=== PATIENT | female | born 1965 | race Caucasian/White ===

== ENCOUNTER 2017-08-24 19:23 | Emergency (ER) | payer OTHER ==
[~2017-08-24] VITALS: Ht 162.6 cm; Wt 72.6 kg
[~2017-08-24 19:23] MED LIST: AMLODIPINE10 MG PO; ASPIRIN81 MG PO; ATORVASTATIN CA80 MG PO; CLOPIDOGREL75 MG PO; LOPRESSOR 25MG25 MG PO; LYRICA75 M1 PO; NITROSTAT0.4 MG SL; PERCOCET 5-3251 EACH PO; RANEXA 500MG500 MG PO; TORADOL10 MG PO; TRICOR 48MG48 MG PO; VALTREX1000 MG PO
--- NOTE | 2017-08-24 20:00 | ED GI/GU/ABDOMINAL COMPLAINT ---
History of Present Illness General Chief Complaint: Abdominal Pain/Flank Pain Stated Complaint: SHINGLES, ABD PAIN Source: patient Exam Limitations: no limitations Vital Signs & Intake/Output Vital Signs & Intake/Output Vital Signs Date Time Temp Pulse Resp B/P B/P Pulse O2 O2 Flow FiO2 Mean Ox Delivery Rate 08/25 0038 98.4 72 20 135/81 93 Room Air 08/24 2238 97.3 82 18 114/63 94 Room Air 08/24 1933 98.4 70 20 145/84 98 Room Air ED Intake and Output 08/25 0000 08/24 1200 Intake Total Output Total Balance Patient 160 lb Weight Weight Reported by Patient Measurement Method Allergies Coded Allergies: Penicillins (Severe, SWELLING 08/24/17) erythromycin base (Severe, TONGUE SWELLING 08/24/17) azithromycin (Intermediate, SWELLING 08/24/17) naproxen (From NAPROSYN) (Intermediate, HIVES, FEELS FAINT 08/24/17) Reconcile Medications Amlodipine Besylate (Amlodipine) 10 MG TAB 1 TAB PO DAILY BP (Reported) Aspirin 81 MG ECT 1 TAB PO DAILY HEART/BLOOD (Reported) Atorvastatin Calcium (Lipitor) 80 MG TAB 1 TAB PO DAILY CHOLESTEROL (Reported ) CLOPIDOGREL BISULFATE (Clopidogrel) 75 MG TAB 1 TAB PO DAILY BLOOD THINNER ( Reported) Fenofibrate (Tricor 48MG) 48 MG TAB 1 TAB PO DAILY TRIGLYCERIDES (Reported) Ketorolac Tromethamine (Toradol) 10 MG TAB 1 TAB PO Q4-6 PRN PAIN Metoprolol Tartrate (Lopressor) 25 MG TAB 1 TAB PO BID HEART/BP (Reported) Nitroglycerin (Nitrostat) 0.4 MG TAB 1 TAB SL AD PRN ANGINA (Reported) Oxycodone HCl/Acetaminophen (Percocet 5-325 MG Tablet) 5 MG-325 MG TABLET 1-2 TAB PO BID pain Oxycodone HCl/Acetaminophen (Percocet 5-325 MG Tablet) 1 EACH TABLET 1-2 TAB PO Q6P PRN PAIN Oxycodone HCl/Acetaminophen (Percocet 5-325 MG Tablet) 5 MG-325 MG TABLET 1-2 TAB PO Q6P PRN PAIN Pregabalin (Lyrica) 75 MG CAPSULE 1 CAP PO BID shingles Pregabalin (Lyrica) 75 MG CAPSULE 1 CAP PO BID POST HERPETIC NEURALGIA Ranolazine (Ranexa 500MG) 500 MG TAB 1 TAB PO BID ANGINA (Reported) Valacyclovir HCl (Valtrex) 1,000 MG TABLET 1 TAB PO TID SHINGLES Triage Note: TRIAGE: PT TO ER C/C PAIN TO NECK, ABD AND LEGS S/P DIAGNOSED WITH SHINGLES 07/30. HAS HAD PERCOCET AND ASPIRIN FOR PAIN. PERCOCET WAS HELPING BUT RAN OUT OF SAME MAYBE A WEEEK. +NAUSEA, VOMITED A COUPLE TIMES YESTERDAY. ATTEMPTING TO DRINK WATER AT TRIAGE, ADVISED TO REMAIN NPO UNTIL EVALUATED. Triage Nurses Notes Reviewed? yes ? n Is pt currently ? No Onset: Abrupt Duration: day(s):, constant Timing: recent history Location: right upper quadrant Radiation: back Activities at Onset: none No Modifying Factors: none HPI: 51-year-old female comes into the emergency room with abdominal pain. She has a history of coronary disease with 8 stents in her heart. She smokes previously 5 packs of cigarettes per day. She was diagnosed with shingles this past week. She reports that now she is having some associated nausea and vomiting and abdominal pain. The abdominal pain is somewhat located over the area with the rashes but also a little bit lower. Denies any changes in bowel movement. Nothing seems to make the symptoms better or worse. She comes in for further evaluation. (Binu Mckeon) Past History Travel History Traveled to [place] past 21 day No Medical History Any Pertinent Medical History? 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 No (Binu Mckeon) Review of Systems Review of Systems Constitutional: Reports: no symptoms. EENTM: Reports: no symptoms. Respiratory: Reports: no symptoms. Cardiovascular: Reports: no symptoms. GI: Reports: see HPI. Genitourinary: Reports: no symptoms. Musculoskeletal: Reports: see HPI. Skin: Reports: see HPI. Neurological/Psychological: Reports: no symptoms. Hematologic/Endocrine: Reports: no symptoms. Immunologic/Allergic: Reports: no symptoms. All Other Systems: Reviewed and Negative (Binu Mckeon) Physical Exam Physical Exam General Appearance: well developed/nourished, alert, awake Head: atraumatic Eyes: Bilateral: normal appearance, EOMI. Ears, Nose, Throat, Mouth: hearing grossly normal, moist mucous membrane Neck: normal inspection Respiratory: normal breath sounds, no respiratory distress Cardiovascular: regular rate/rhythm Gastrointestinal: soft Back: normal inspection Extremities: normal range of motion Neurologic/Psych: awake, alert, oriented x 3 Skin: intact, normal color, crusted papular rash right side of chest wrapping around to her abdomen and back Core Measures ACS in differential dx? Yes Sepsis Present: No Sepsis Focused Exam Completed? No (Binu Mckeon) Progress Differential Diagnosis: biliary colic, diverticulitis, gastritis, hepatitis, ischemic bowel, kidney stone, pancreatitis, PID/cervicitis, peptic ulcer, PUD/ GERD, perforated viscous, SBO, UTI/pyelo Plan of Care: Orders Procedure Date/time Status TROPONIN LEVEL 08/244 Complete EKG 08/24 2333 Active URINALYSIS 08/25 2003 Complete TROPONIN LEVEL 08/25 2003 Complete LIPASE 08/25 2003 Complete LACTIC ACID 08/25 2003 Complete COMPREHENSIVE METABOLIC PANEL 08/25 2003 Complete CBC WITHOUT DIFFERENTIAL 08/25 2003 Complete AMYLASE 08/25 2003 Complete EKG 08/25 2003 Active Laboratory Tests 08/24/17 2355: Troponin I < 0.01 08/24/17 2304: Lactic Acid Cancelled 08/24/17 2015: Urine Color YEL, Urine Clarity CLEAR, Urine pH 6.0, Ur Specific Viola >= 1.030 , Urine Protein NEG, Urine Ketones NEG, Urine Nitrite NEG, Urine Bilirubin NEG, Urine Urobilinogen 0.2, Ur Leukocyte Esterase NEG, Ur Microscopic EXAM NOT REQUIRED, Urine Hemoglobin NEG, Urine Glucose NEG 08/24/17 2010: Anion Gap 12, Estimated GFR > 60, BUN/Creatinine Ratio 18.8, Glucose 128 H, Lactic Acid 1.4, Calcium 9.4, Total Bilirubin 0.4, AST 23, ALT 27, Alkaline Phosphatase 110, Troponin I < 0.01, Total Protein 6.9, Albumin 3.9, Globulin 3.0 , Albumin/Globulin Ratio 1.3, Amylase 49, Lipase 101, CBC w Diff NO MAN DIFF REQ , RBC 4.36, MCV 90.1, MCH 30.7, MCHC 34.1, RDW 13.9, MPV 8.7, Gran % 63.5, Lymphocytes % 26.3, Monocytes % 7.2, Eosinophils % 2.6, Basophils % 0.4, Absolute Granulocytes 6.1, Absolute Lymphocytes 2.5, Absolute Monocytes 0.7 H, Absolute Eosinophils 0.2, Absolute Basophils 0 Diagnostic Imaging: Viewed by Me: CT Scan. Discussed w/RAD: CT Scan. 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 COMPARISON: 2009 TECHNIQUE: Multidetector volumetric imaging was performed of the abdomen and pelvis following IV administration of 94 mL of Omnipaque 300 intravenous contrast. Sagittal and coronal reformatted images were obtained on the technologist's workstation. FINDINGS: LUNG BASES: Bibasilar atelectasis. Coronary artery calcification. Normal heart size. No pericardial effusion. No pleural effusion. LIVER, GALLBLADDER, AND BILIARY TREE: No focal liver lesion. No intrahepatic biliary duct dilatation. Status post cholecystectomy. PANCREAS: Pancreas appears unremarkable. No acute inflammatory changes. SPLEEN: Unremarkable. ADRENAL GLANDS: Unremarkable. KIDNEYS AND URETERS: The kidneys are normal in size, shape, and attenuation. No hydronephrosis, hydroureter, or calculi seen. No perinephric stranding. A portion of the distal right ureter is difficult to follow, but no calculi in the expected course of the ureter. BLADDER: Unremarkable. GASTROINTESTINAL TRACT: There is diverticulosis of the sigmoid and left colon. No pericolonic inflammatory changes to suggest diverticulitis. No colonic wall thickening is seen. Normal caliber of the small bowel loops which are nondistended. There are contents within the lumen of the stomach. There is a rounded focus containing air and fluid in the region of the distal duodenum. This was seen on the prior study of 02/28/2009, 02/27/2009 as well. This may reflect a duodenal diverticulum. ABDOMINAL WALL: No significant hernia is appreciated. LYMPH NODES: No pathologically enlarged lymph nodes are seen. VASCULAR: No evidence of aneurysmal dilatation of the aorta. Moderate atherosclerotic calcification. PELVIC VISCERA: Within normal limits. No free fluid. OSSEOUS STRUCTURES: Multilevel degenerative changes in the spine. No suspicious osseous lesions are seen. IMPRESSION: 1. Colonic diverticulosis. No evidence of diverticulitis. 2. No acute process identified in the abdomen or pelvis. Etiology of the patient's symptoms has not been determined. DICTATED BY: Morris Murcia MD DATE/TIME DICTATED:08/24/172151 PICKLE SOLUTION MAKER:ASHLEY DATE/TIME TRANSCRIBED:08/24/172151 CONFIDENTIAL, DO NOT COPY WITHOUT APPROPRIATE AUTHORIZATION. <Electronically signed in Other Vendor System> SIGNED BY: Morris Murcia MD 08/24/172235 Initial ED EKG: normal sinus rhythm, rate (61), nonspecific ST T wave chg Repeat EKG: unchanged Hand-Off Endorsed To: Richard Mclain MD Endorsed Time: 32 Pending: labs (repeat troponin) (Binu Mckeon) Departure Departure Disposition: HOME OR SELF CARE Condition: Stable Clinical Impression Primary Impression: Abdominal pain Secondary Impressions: Post herpetic neuralgia Referrals: Patient Has No Primary Care Dr (PCP/Family) Additional Instructions: Take Percocet and Lyrica as prescribed. Follow-up with primary care doctor. Return if any concerns worsening symptoms Please go over all results of today's visit with your primary care doctor. Contact your primary care doctor to let them know you were here in the emergency room. There may be nonspecific findings which may not be related to your visit today here in the emergency room but may require further evaluation and chronic monitoring by your primary care doctor. If you had a laceration today the chance of foreign body always remains. You should follow-up with your primary care doctor for recheck in 3-5 days for a wound check. If you had an x-ray done there is a chance that a fracture could have been missed on initial read and you should follow-up with your primary care doctor for repeat x-rays if symptoms persist. If your blood pressure was elevated here in the emergency room please have rechecked by hyour primary care doctor within the next 48. If you were prescribed a narcotic here in the emergency room or any type of controlled substances you're not allowed to drive while taking this medication or operate any type of heavy machinery. Narcotics can make you feel lightheaded dizziness nausea and can cause constipation. You may need to citrus picker a stool softener. Thank you for choosing [facility] emergency room. Please return to the emergency room immediately if you have any other concerns worsening of symptoms. Departure Forms: Customer Survey General Discharge Information Prescriptions: Current Visit Scripts Oxycodone HCl/Acetaminophen (Percocet 5-325 MG Tablet) 1-2 TAB PO BID #10 TAB Pregabalin (Lyrica) 1 CAP PO BID #60 CAP (Binu Mckeon) PA/GELATIN MAKER [employer] Co-Sign Statement Statement: ED Attending supervision documentation- [x] I saw and evaluated the patient. I have also reviewed all the pertinent lab results and diagnostic results. I agree with the findings and the plan of care as documented in the PA's/GELATIN MAKER [employer]'s documentation. 08/25/17, 0:52am... pt with reproducible paracervical muscle spasm and tenderness to palpation. 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 trop negx2, dimer neg, ekg benign x 2... pt safe for discharge... close follow up advised. [] I have reviewed the ED Record and agree with the PA's/GELATIN MAKER [employer]'s documentation. [] Additions or exceptions (if any) to the PAs/GELATIN MAKER [employer]'s note and plan are summarized below: [] (Rayne VÁSQUEZ,Richard Alfaro)
[2017-08-24 20:23] LABS: ABSOLUTE BASOPHIL COUNT 0 /CUMM (0.0-0.2); ABSOLUTE EOSINOPHIL COUNT 0.2 /CUMM (0.0-0.7); ABSOLUTE GRANULOCYTE CT 6.1 /CUMM (1.4-6.5); ABSOLUTE LYMPH COUNT 2.5 /CUMM (1.2-3.4); ABSOLUTE MONOCYTE COUNT 0.7 /CUMM (0.10-0.60); BASOPHIL % 0.4 % (0.0-2.0); EOSINOPHIL % 2.6 % (0-5); GRANULOCYTE % 63.5 % (42.2-75.2); HEMATOCRIT 39.3 % (37-47); MEAN CORPUSCULAR HGB 30.7 PG (27.0-31.0); MEAN CORPUSCULAR HGB CONC 34.1 G/DL (33.0-37.0); MEAN CORPUSCULAR VOLUME 90.1 FL (81.0-99.0); MEAN PLATELET VOLUME 8.7 FL (7.4-10.4); PLATELET COUNT 318 /CUMM (130-400); RBC DISTRIBUTION WIDTH 13.9 % (11.5-14.5); RED BLOOD CELL CT 4.36 /CUMM (4.20-5.40); WHITE BLOOD CELL COUNT 9.6 /CUMM (4.8-10.8)
--- NOTE | 2017-08-24 22:36 | CT SCAN REPORT ---
EXAMINATION: CT ABDOMEN AND PELVIS WITH CONTRAST CLINICAL INFORMATION: Right-sided abdominal pain. COMPARISON: 02/28/2009 TECHNIQUE: Multidetector volumetric imaging was performed of the abdomen and pelvis following IV administration of 94 mL of Omnipaque 300 intravenous contrast. Sagittal and coronal reformatted images were obtained on the technologist's workstation. FINDINGS: LUNG BASES: Bibasilar atelectasis. Coronary artery calcification. Normal heart size. No pericardial effusion. No pleural effusion. LIVER, GALLBLADDER, AND BILIARY TREE: No focal liver lesion. No intrahepatic biliary duct dilatation. Status post cholecystectomy. PANCREAS: Pancreas appears unremarkable. No acute inflammatory changes. SPLEEN: Unremarkable. ADRENAL GLANDS: Unremarkable. KIDNEYS AND URETERS: The kidneys are normal in size, shape, and attenuation. No hydronephrosis, hydroureter, or calculi seen. No perinephric stranding. A portion of the distal right ureter is difficult to follow, but no calculi in the expected course of the ureter. BLADDER: Unremarkable. GASTROINTESTINAL TRACT: There is diverticulosis of the sigmoid and left colon. No pericolonic inflammatory changes to suggest diverticulitis. No colonic wall thickening is seen. Normal caliber of the small bowel loops which are nondistended. There are contents within the lumen of the stomach. There is a rounded focus containing air and fluid in the region of the distal duodenum. This was seen on the prior study of 02/28/2009, 02/27/2009 as well. This may reflect a duodenal diverticulum. ABDOMINAL WALL: No significant hernia is appreciated. LYMPH NODES: No pathologically enlarged lymph nodes are seen. VASCULAR: No evidence of aneurysmal dilatation of the aorta. Moderate atherosclerotic calcification. PELVIC VISCERA: Within normal limits. No free fluid. OSSEOUS STRUCTURES: Multilevel degenerative changes in the spine. No suspicious osseous lesions are seen. IMPRESSION: 1. Colonic diverticulosis. No evidence of diverticulitis. 2. No acute process identified in the abdomen or pelvis. Etiology of the patient's symptoms has not been determined.
[2017-08-25] MEDS ORDERED: LYRICA75 M1 PO (00:08)
[2017-08-25] MEDS ORDERED: PERCOCET 5-3251 EACH PO (00:08)
[2017-08-25 00:38] VITALS: BP 135/81
== END 2017-08-25 00:59 ==
LOC: ERH 19:23
PROVIDERS: Physician Assistant Medical
DX: B02.29 Other postherpetic nervous system involvement (principal)
CPT/HCPCS: 74177; 81003; 93005; 93010; 96374